=== PATIENT | male | born 1980 | race Caucasian/White ===

== ENCOUNTER 2019-04-10 08:34 | Outpatient (CLI) | payer BC ==
[~2019-04-10] VITALS: Ht 190.5 cm; Wt 98.0 kg
[2019-04-10 09:06] LABS: MEAN CELL VOLUME 85 fl (80.0-100.0); MEAN CORPUSCULAR HEMOGLOBIN 30 pg (27.0-31.0); MEAN CORPUSCULAR HGB CONC 35 g/dl (33.0-37.0); MEAN PLATELET VOLUME 9.5 fl (7.4-10.4); PLATELET COUNT 189 K/mm3 (130-400); RED BLOOD COUNT 4.71 M/mm3 (4.20-5.60); REDCELL DISTRIBUTION WIDTH-CV 11.5 % (11.5-14.5)
[2019-04-10 09:16] LABS: CALCIUM 9.3 mg/dL (8.4-10.2); CREATININE, serum 0.78 (0.66-1.25); POTASSIUM 4.4 mmol/L (3.4-5.0)
[2019-04-10 09:19] VITALS: BP 109/83; PULSE 72; TEMP 98.4
[2019-04-10 09:28] LABS: PROTHROMBIN TIME 12.2 SECONDS (9.7-12.8)
[2019-04-10 11:20] VITALS: BP 105/73; PULSE 63
--- NOTE | 2019-04-10 11:22 | NUR ---
CARLOS complete and report from Kiara Riojas RN. Pt resting well, at bedside.
[2019-04-10 11:35] VITALS: BP 107/77; PULSE 61; TEMP 98
[2019-04-10 11:50] VITALS: BP 113/79; PULSE 60
[2019-04-10 12:05] VITALS: BP 115/82; PULSE 64
--- NOTE | 2019-04-10 12:20 | NUR ---
Pt has ambulated, voided and deon PO intake s n/v. PIV removed with catheter intact.
--- NOTE | 2019-04-10 12:35 | NUR ---
Pt discharged per w/c by nurse with .
== END 2019-04-10 12:43 | disposition home or self-care (01) ==
LOC: EUO 08:34
PROVIDERS: Internal Medicine Cardiovascular Disease
DX: I34.0 Nonrheumatic mitral (valve) insufficiency (principal)
CPT/HCPCS: J2704